=== PATIENT | male | born 1980 | race Caucasian/White ===

== ENCOUNTER 2019-02-10 13:46 | Emergency (ER) | payer SELFPAY ==
[2019-02-10 14:16] LABS: Hemoglobin 18.2 g/dL (14.0-18.0); Mean Corpuscular HGB CONC 31.4 g/dL (32.0-36.0); Mean Corpuscular Hemoglobin 31.2 pg (27.0-31.0); Mean Corpuscular Volume 99.3 fL (78.0-98.0); Mean Platelet Volume 7.1 fL (7.4-10.4); Platelet Count 311 thou/uL (130-400); RBC Distribution Width 13.1 % (11.5-14.5); Red Blood Cell (RBC) Count 5.84 mill/uL (4.70-6.10); White Blood Cell (WBC) Count 27.7 thou/uL (4.8-10.8)
[2019-02-10 14:32] LABS: Band 16 % (5-11); Eosinophils 1 % (0-10); Lymphocytes 8 % (21-51); MDiff Complete? YES; Monocytes 6 % (0-10); Neutrophil 69 % (42-75); Platelet Morphology Comment Appears Adequate; RBC Morphology Normal
[2019-02-10 14:36] LABS: Anion Gap 13 mmol/L (10-20); BUN (Urea Nitrogen) Less than 4 mg/dL (8.9-20.6); Calc. Creatinine Clearance 0 mL/min (70-130); Carbon Dioxide 24 mmol/L (22-29); Chloride 104 mmol/L (98-107); Estimated GFR-MDRD Greater than 90; Glucose 93 mg/dL (70-105); Potassium 4.8 mmol/L (3.5-5.1); Sodium 136 mmol/L (136-145)
[2019-02-10] MEDS ORDERED: Iopamidol 370 76% 100 ML VIAL ONE (14:48)
--- NOTE | 2019-02-10 15:07 | CT ---
CT Neck Soft Tissue W Con History: [Throat pain and swelling. Nodular cough and sinus pressure. Strep throat.] Comparison: None. Findings: The lung apices are without consolidation. Mild paraseptal emphysema. Normal cervical spine alignment. No suspicious osteolytic or osteoblastic lesions. There is a large right tonsillar abscess measuring 2.3 x 1.8 x 2.1 cm. There is a mass effect upon th e airway which is narrowed. The pharynx at this level measures up to 5 mm. Impression: Right tonsillar abscess as described with narrowing of the oropharynx to approximately 5 mm. ENT consultation advised. Small volume retropharyngeal fluid may be reactive.
[2019-02-10] MEDS ORDERED: Dexamethasone 4 mg/ml Vial ONE ×2 (15:34→15:35)
[2019-02-10] MEDS ORDERED: cefTRIAXone\\ROCEPHIN 1 GM VIAL ONE (15:34)
== END 2019-02-10 16:23 | disposition home or self-care (01) ==
LOC: ERS 13:46
DX: J36 Peritonsillar abscess (principal)
CPT/HCPCS: 70491; 80048; 85025; 87081; 87430; 96361; 96374; 96375; J0696; J1100; Q9967